=== PATIENT | female | born 1950 | race Hispanic/Latino ===

== ENCOUNTER 2019-08-06 22:22 | Observation (INO) | payer OTHER ==
[~2019-08-06] VITALS: Ht 157.5 cm; Wt 73.4 kg
[2019-08-06] MEDS ORDERED: ONDANSETRON HCL 4 MG/2 ML VIAL ONE (22:45)
[2019-08-06 22:55] LABS: APPEARANCE,URINE Clear (CLEAR); BILIRUBIN,URINE Negative (NEGATIVE); COLOR,URINE Dark Yellow (YELLOW); GLUCOSE, URINE (UA) Negative (NEGATIVE); KETONES,URINE Negative (NEGATIVE); LEUKOCYTE ESTERASE ,URINE Small (NEGATIVE); NITRATE,URINE Negative (NEGATIVE); OCCULT BLOOD,URINE Negative (NEGATIVE); PROTEIN,URINE POS 1+ mg/dL (NEGATIVE)
[2019-08-06 23:03] LABS: BASOPHILS % (AUTO) 0.3 % (0.0-5.0); EOSINOPHILS % (AUTO) 1.4 % (0.0-8.0); HEMATOCRIT 43.9 % (36-48); LYMPHOCYTES % (AUTO) 9.4 % (21.0-51.0); MEAN CORPUSCULAR HEMOGLOBIN 30.4 pg (27.0-33.0); MEAN CORPUSCULAR HGB CONC 33.6 g/dL (32.0-36.0); MEAN CORPUSCULAR VOLUME 90.5 fL (79-99); MONOCYTES % (AUTO) 7.4 % (3.0-13.0); NEUTROPHILS % (AUTO) 81.5 % (40.0-77.0); NUCLEATED RED BLOOD CELLS 0.1 % (0.0-0.19); PLATELET COUNT (AUTO) 239 K/uL (130-400); RED BLOOD CELL COUNT(AUTO) 4.85 MIL/uL (4.00-5.50); RED CELL DISTRIBUTION WIDTH 13.4 % (11.0-15.5); WHITE BLOOD COUNT (AUTO) 12.4 K/uL (4.8-10.8)
[2019-08-06 23:13] LABS: INR 1.06 (0.85-1.15); PARTIAL THROMBOPLASTIN TIME 26.6 SEC (26.3-35.5); POTASSIUM 3.9 mmol/L (3.5-5.1); PROTHROMBIN TIME 11.1 SEC (9.6-11.6)
[2019-08-06 23:16] LABS: BACTERIA,URINE None Seen /HPF (None Seen); RBC,URINE None Seen /HPF (0-1); SQUAMOUS EPITHELIAL CELL,UR Few /HPF (0-2); WBC,URINE 0-1 /HPF (0-1)
[2019-08-06 23:19] LABS: ALBUMIN 4.2 g/dL (3.5-5.0); BILIRUBIN,TOTAL 0.6 mg/dL (0.2-1.0); TOTAL PROTEIN, SERUM 9.3 g/dL (6.0-8.3)
[2019-08-07] MEDS ORDERED: ONDANSETRON HCL 4 MG/2 ML VIAL ONE (01:56)
[2019-08-07] MEDS ORDERED: LEVOFLOXACIN 500 MG/D5W 100 ML 100 ML ONE (02:40)
[2019-08-07] MEDS ORDERED: SODIUM CHLORIDE 0.9% 1000ML 1,000 ML IV ONE (03:54)
[2019-08-07] MEDS ORDERED: ACETAMINOPHEN 325 MG TAB PO PRN (04:00)
[2019-08-07] MEDS: SODIUM CHLORIDE 0.9% 1000ML 1,000 ML IV SCH ×2 (04:00→14:00)
[2019-08-07] MEDS ORDERED: ONDANSETRON HCL 4 MG/2 ML VIAL IVP PRN (04:00)
[2019-08-07] MEDS: METRONIDAZOLE 500MG/100ML BAG 100 ML IVPB SCH ×2 (04:29→13:31)
--- NOTE | 2019-08-07 04:30 | NUR ---
Admission Assessment Received pt from ED with no family around, DX: Gastroenteritis, nausea, vomiting with pt stated all started yesterday at 1800, NS at 100cc/hr initiated in ED infusing well. Routine admission assessment done, plan of care discuss, pt made aware on observation, 24-48 hours hospital stay depending on all test being done. Pt also claimed she started to have diarrhea last night x 3 episodes. Pt instructed we need a stool specimen for c-diff. Pt stated current with Flu / Pneumonia vaccination. Pt currently denies discomfort & want to be left alone to be able to sleep.
[2019-08-07 04:45] VITALS: BP 128/71
[2019-08-07] MEDS: METOCLOPRAMIDE 10 MG/2 ML VIAL IVP SCH ×3 (05:45→18:00)
[2019-08-07 06:26] LABS: MEAN CORPUSCULAR HEMOGLOBIN 30.7 pg (27.0-33.0); MEAN CORPUSCULAR HGB CONC 33.2 g/dL (32.0-36.0); MEAN CORPUSCULAR VOLUME 92.4 fL (79-99); PLATELET COUNT (AUTO) 211 K/uL (130-400); RED BLOOD CELL COUNT(AUTO) 4.55 MIL/uL (4.00-5.50); RED CELL DISTRIBUTION WIDTH 13.6 % (11.0-15.5); WHITE BLOOD COUNT (AUTO) 8.9 K/uL (4.8-10.8)
[2019-08-07 07:30] VITALS: BP 117/67
[2019-08-07] MEDS ORDERED: PANTOPRAZOLE 40 MG/VIAL IVP SCH (09:00)
[2019-08-07 09:02] LABS: MAGNESIUM 1.8 mg/dL (1.80-2.40)
[2019-08-07] MEDS ORDERED: OMEP40CA13 PO (09:37)
[2019-08-07 11:00] VITALS: BP 131/63
[2019-08-07 12:31] LABS: POTASSIUM 3.7 mmol/L (3.5-5.1)
--- NOTE | 2019-08-07 14:50 | NUR ---
INITIAL: Met w patient and spouse this afternoon to discuss dcp. Pt mentions that prior to admission she was independent w ambulation and ADLs. She mentions that she does not own any DME or receive services. Per pt she feels safe and comfortable to return home at ut. CM to continue to follow and wait for Md recommendations. Addendum: 08/07/19 at 1451 by MELIZA LAROSE Amended: Links added.
[2019-08-07 16:00] VITALS: BP 127/64
[2019-08-07] MEDS ORDERED: METR500T PO (16:13)
== END 2019-08-07 19:15 | disposition home or self-care (01) ==
LOC: EDH 22:22 → EDHIP 08-07 03:36 → 3AH 08-07 04:14
PROVIDERS: ADMIT Internal Medicine Critical Care Medicine; ATTEND Internal Medicine Critical Care Medicine
DX: K52.9 Noninfective gastroenteritis and colitis, unspecified (principal); E78.5 Hyperlipidemia, unspecified; K21.9 Gastro-esophageal reflux disease without esophagitis; Z87.440 Personal history of urinary (tract) infections; Z79.899 Other long term (current) drug therapy; Z90.49 Acquired absence of other specified parts of digestive tract; Z79.01 Long term (current) use of anticoagulants
CPT/HCPCS: 36415 ×2; 74176; 80048; 80053; 81001; 82150; 82270; 82550; 83630; 83690; 83735; 84484; 85025; 85027; 85610; 85730; 87046; 87177; 87324; 93005; 96365; 96366; 96375; 96376; 99284; C9113; G0378 ×16; J1956; J2405 ×2; J2765 ×2; J3490 ×2; J7030